=== PATIENT | female | born 1995 ===

== ENCOUNTER 2018-01-09 05:45 | Emergency (ER) | payer OTHER ==
[2018-01-09 05:57] VITALS: O2SAT 99
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
[2018-01-09] MEDS ORDERED: Bacitracin 500 Units/gm Oint Foilpak UD ONE (07:45)
[2018-01-09] MEDS ORDERED: Tetanus/Diphtheria Toxoids 0.5 ml Syringe IM ONE ×2 (07:50→08:08)
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
[2018-01-09 10:31] VITALS: BP 118/67; PULSE 88; RESP 16; TEMP 98.2
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
== END 2018-01-09 10:30 | disposition home or self-care (01) ==
LOC: C.ER 05:45
DX: M25.572 Pain in left ankle and joints of left foot (principal); M25.562 Pain in left knee; M25.48 Effusion, other site; S96.912A Strain of unspecified muscle and tendon at ankle and foot level, left foot, initial encounter; V03.90XA Pedestrian on foot injured in collision with car, pick-up truck or van, unspecified whether traffic or nontraffic accident, initial encounter; Y92.410 Unspecified street and highway as the place of occurrence of the external cause; Z23 Encounter for immunization
CPT/HCPCS: 73590; 73700; 90471; 90714; 96372; 99284; J1885